=== PATIENT | male | born 1965 | race Caucasian/White ===

== ENCOUNTER 2023-07-12 23:41 | Inpatient (IN) | payer OTHER, MEDICAID ==
[~2023-07-12] VITALS: Ht 170.2 cm; Wt 108.4 kg
[2023-07-13] VITALS (39 sets, daily range): BP systolic 121–154; BP diastolic 82–112; PULSE 75–97; RESP 14–27; TEMP 97.2–98.1
[2023-07-13 00:35] LABS: BASOPHILS % 0.9 % (0.0-2.0); EOSINOPHILS % 6.7 % (0.0-5.0); HEMATOCRIT. 54.7 % (42.0-52.0); LYMPHOCYTES % 23.4 % (20.0-50.0); MEAN CORPUSCULAR HEMOGLOBIN 32.5 pg (28.0-32.0); MEAN CORPUSCULAR HGB CONC 34.7 g/dL (31.0-37.0); MEAN CORPUSCULAR VOLUME 93.7 fL (80.0-94.0); MONOCYTES % 4.7 % (2.0-8.0); NEUTROPHILS % 64.3 % (40.0-76.0); PLATELET 280 x1000/uL (130-400); RED BLOOD CELL COUNT 5.84 mill/uL (4.7-6.1); RED CELL DISTRIBUTION WIDTH 14.7 % (11.6-14.6); WHITE BLOOD COUNT 10.9 x1000/uL (4.5-11.0)
[2023-07-13 00:42] LABS: CHLORIDE 103 mEq/L (98-107); POTASSIUM 3.6 mEq/L (3.5-5.1); SODIUM 138 mEq/L (136-145)
[2023-07-13 00:43] LABS: CARBON DIOXIDE 28 mEq/L (21-32)
[2023-07-13 00:44] LABS: CALCIUM 8.9 mg/dL (8.7-10.4)
[2023-07-13 00:48] LABS: CREATININE 1.2 mg/dL (0.6-1.3); GLUCOSE 155 mg/dL (70-105)
[2023-07-13 00:49] LABS: UREA NITROGEN BLOOD 7 mg/dL (9-23)
[2023-07-13 00:50] LABS: ALANINE AMINOTRANSFERASE 25 IU/L (10-49); ALBUMIN 4.5 g/dL (3.2-4.8); ASPARTATE AMINOTRANSFERASE 32 IU/L (<34); LACTIC ACID 2.2 mmol/L (0.4-2.0)
[2023-07-13 00:51] LABS: BILIRUBIN TOTAL 0.5 mg/dL (0.1-1.0); PROTEIN TOTAL 7.8 g/dL (6.0-8.3)
[2023-07-13 00:59] LABS: TROPONIN I HIGH SENSITIVITY 621 ng/L (3.0-53)
[2023-07-13 01:23] LABS: BG BASE EXCESS -1.5 mmol/L (-2.0-2.0); BG CARBOXYHEMOGLOBIN 0.2 % (0.5-1.5); BG DEOXYHEMOGLOBIN 4.6 % (0.0-5.0); BG FRACTION INSPIRED OXYGEN 28; BG HCO3 ACT 21.9 mmol/L (22.0-26.0); BG METHEMOGLOBIN 0.3 % (0.0-1.5); BG OXYGEN SATURATION 95.4 % (92.0-98.5); BG OXYHEMOGLOBIN 94.9 % (94.0-97.0); BG PCO2 34.3 mmHg (35.0-45.0); BG PH 7.423 (7.350-7.450); BG PO2 77.3 mmHg (75.0-100.0); BG SAMPLE SITE RIGHT BRACHIAL; BG VENT MODE NASAL CANNULA
[2023-07-13] MEDS: LABETALOL 5MG/ML SYR 20 MG/4 ML SYRINGE IV NR (01:54)
[2023-07-13] MEDS: CEFTRIAXONE 1GM/50ML 50 ML IV ONE (01:54)
[2023-07-13] MEDS: AZITHROMYCIN 500MG/250ML 250 ML IV ONE (03:01)
[2023-07-13 03:14] LABS: TROPONIN I HIGH SENSITIVITY 563 ng/L (3.0-53)
[2023-07-13] MEDS ORDERED: NICARDIPINE 100 MG in SODIUM CHLORIDE 0.9% 60 ML IV ONE (03:15)
[2023-07-13] MEDS: NICARDIPINE 40 MG/200 ML PREMIX 200 ML IV NR (03:49)
[2023-07-13] MEDS: IOHEXOL-350 100 ML BOTTLE ONE (05:03)
[2023-07-13] MEDS ORDERED: MAGNESIUM/ALUMINUM HYDROXIDE/SIMETHICONE 30ML UDC PO PRN (09:30)
[2023-07-13] MEDS ORDERED: IPRATROPIUM/ALBUTEROL 0.5-3(2.5)MG/3ML NEB HHN PRN (09:30)
[2023-07-13] MEDS ORDERED: GUAIFENESIN 200MG/10ML SUGAR FREE UDC PO PRN (09:30)
[2023-07-13] MEDS ORDERED: DOCUSATE SODIUM 100MG CAPSULE PO PRN (09:30)
[2023-07-13] MEDS ORDERED: NA PHOS,M-B/NA PHOS,DI-BA ENEMA 118ML PR PRN (09:30)
[2023-07-13] MEDS ORDERED: ONDANSETRON HCL 4MG/2ML INJ IV PRN (09:30)
[2023-07-13] MEDS ORDERED: ACETAMINOPHEN 325MG TABLET PO PRN ×2 (09:30)
[2023-07-13] MEDS ORDERED: LABE300T36 PO (09:32)
[2023-07-13] MEDS ORDERED: GUAN2TAB PO (09:32)
[2023-07-13] MEDS ORDERED: FURO20TA4 PO (09:32)
[2023-07-13] MEDS ORDERED: LOSA100T33 PO (09:32)
[2023-07-13] MEDS ORDERED: HYDR25TA PO (09:32)
[2023-07-13] MEDS ORDERED: SPIR50TA5 PO (09:32)
[2023-07-13] MEDS ORDERED: NIFE-49 PO (09:32)
[2023-07-13] MEDS: ENOXAPARIN 30MG/0.3ML SYR SUBCUT SCH (10:34)
[2023-07-13] MEDS: NIFEDIPINE XL 60MG TAB PO SCH (10:35)
[2023-07-13] MEDS: HYDROCHLOROTHIAZIDE 25MG TABLET PO SCH (11:33)
[2023-07-13] MEDS: CLONIDINE 0.1MG TABLET PO PRN (12:16)
[2023-07-13] MEDS ORDERED: FAMO20TA8 PO (14:21)
[2023-07-13] MEDS ORDERED: DAPA10TA PO (14:21)
[2023-07-13] MEDS ORDERED: AMLO10TA80 PO (14:21)
[2023-07-13] MEDS ORDERED: METF-874 PO (14:21)
[2023-07-13 14:48] LABS: CREATINE KINASE 261 IU/L (46-171)
[2023-07-13 15:07] LABS: TROPONIN I HIGH SENSITIVITY 522 ng/L (3.0-53)
[2023-07-13 15:30] LABS: CLARITY URINE CLEAR (CLEAR); COLOR URINE YELLOW (YELLOW); GLUCOSE URINE NEGATIVE (NEGATIVE); KETONES URINE NEGATIVE (NEGATIVE); LEUKOCYTE ESTERASE URINE NEGATIVE (NEGATIVE); NITRITE URINE NEGATIVE (NEGATIVE); OCCULT BLOOD URINE NEGATIVE (NEGATIVE); PH URINE 7.5 (4.5-8.0); PROTEIN URINE NEGATIVE (NEGATIVE); SPECIFIC GRAVITY URINE 1.009 (1.005-1.030); UROBILINOGEN URINE 0.2 E.U./dL (0.2-1.0)
[2023-07-13 15:38] LABS: *AMPHETAMINES SCREEN URINE NEGATIVE (NEGATIVE); *BARBITURATES SCREEN URINE NEGATIVE (NEGATIVE); *BENZODIAZEPINES SCREEN URINE NEGATIVE (NEGATIVE); *COCAINE SCREEN URINE NEGATIVE (NEGATIVE); CANNABINOID URINE SCREEN NEGATIVE (NEGATIVE); ECSTASY MDMA SCREEN URINE NEGATIVE (NEGATIVE); METHADONE URINE SCREEN NEGATIVE (NEGATIVE); OPIATES URINE SCREEN NEGATIVE (NEGATIVE); PHENCYCLIDINE URINE SCREEN NEGATIVE (NEGATIVE)
[2023-07-13 17:13] LABS: PROTHROMBIN TIME 11.5 sec (9.6-11.0)
[2023-07-13] MEDS ORDERED: HYDRALAZINE 20MG/ML VIAL IV PRN (18:45)
[2023-07-13] MEDS: ENOXAPARIN 120MG/0.8ML SYR SUBCUT NR (20:50)
[2023-07-13] MEDS: LABETALOL HCL 300MG TABLET PO SCH (20:51)
[2023-07-13] MEDS: FUROSEMIDE 20MG TABLET PO SCH (20:51)
[2023-07-13] MEDS: LOSARTAN 100 MG TABLET PO SCH (20:52)
[2023-07-13] MEDS ORDERED: LOSARTAN 100 MG TABLET PO SCH (21:00)
[2023-07-13 23:42] LABS: CREATINE KINASE 215 IU/L (46-171)
[2023-07-13 23:48] LABS: TROPONIN I HIGH SENSITIVITY 530 ng/L (3.0-53)
[2023-07-14] VITALS (15 sets, daily range): BP systolic 107–134; BP diastolic 71–98; PULSE 75–91; RESP 15–23; TEMP 97.3–98.5
[2023-07-14] MEDS: AZITHROMYCIN 500MG/250ML 250 ML IV SCH (00:21)
[2023-07-14] MEDS: CEFTRIAXONE 1GM/50ML 50 ML IV SCH (02:03)
[2023-07-14] MEDS: ENOXAPARIN 120MG/0.8ML SYR SUBCUT SCH (05:34)
[2023-07-14] MEDS ORDERED: CEFTRIAXONE 1GM/50ML 50 ML IV SCH (06:00)
[2023-07-14] MEDS ORDERED: AZITHROMYCIN 500MG/250ML 250 ML IV SCH (06:30)
[2023-07-14 06:42] LABS: BASOPHILS % 0.6 % (0.0-2.0); CHLORIDE 98 mEq/L (98-107); EOSINOPHILS % 8.9 % (0.0-5.0); HEMATOCRIT. 51.4 % (42.0-52.0); HEMOGLOBIN. 17.7 g/dL (14.0-18.0); LYMPHOCYTES % 24.4 % (20.0-50.0); MEAN CORPUSCULAR HGB CONC 34.5 g/dL (31.0-37.0); MEAN CORPUSCULAR VOLUME 92.8 fL (80.0-94.0); MEAN PLATELET VOLUME 9.1 fl (7.4-10.4); MONOCYTES % 6.7 % (2.0-8.0); NEUTROPHILS % 59.4 % (40.0-76.0); PLATELET 254 x1000/uL (130-400); POTASSIUM 3.4 mEq/L (3.5-5.1); RED BLOOD CELL COUNT 5.53 mill/uL (4.7-6.1); RED CELL DISTRIBUTION WIDTH 14.9 % (11.6-14.6); SODIUM 134 mEq/L (136-145); WHITE BLOOD COUNT 8.6 x1000/uL (4.5-11.0)
[2023-07-14 06:45] LABS: CALCIUM 9.2 mg/dL (8.7-10.4); CARBON DIOXIDE 28 mEq/L (21-32)
[2023-07-14 06:50] LABS: CREATININE 1.1 mg/dL (0.6-1.3); GLUCOSE 121 mg/dL (70-105); TRIGLYCERIDE 208 mg/dL (0-150); UREA NITROGEN BLOOD 8 mg/dL (9-23)
[2023-07-14 06:51] LABS: LDL CHOLESTEROL 114 mg/dL (5-100)
[2023-07-14 06:52] LABS: ALANINE AMINOTRANSFERASE 26 IU/L (10-49); ALBUMIN 4.1 g/dL (3.2-4.8); ASPARTATE AMINOTRANSFERASE 29 IU/L (<34); CHOLESTEROL 190 mg/dL (<200); HDL CHOLESTEROL 63 mg/dL (>55)
[2023-07-14 06:53] LABS: BILIRUBIN TOTAL 0.7 mg/dL (0.1-1.0); T4 FREE 1.26 ng/dL (0.89-1.76); THYROID STIMULATING HORMONE 2.02 uIU/mL (0.55-4.78)
[2023-07-14] MEDS: POTASSIUM CHLORIDE 20MEQ TABLET SR PO NR (10:27)
[2023-07-14] MEDS: ASPIRIN 81MG TABLET PO SCH (15:27)
[2023-07-14] MEDS: FUROSEMIDE 40MG/4ML VIAL IVP SCH (15:27)
[2023-07-14] MEDS: CARVEDILOL 6.25 MG TABLET PO SCH (21:29)
[2023-07-15] VITALS (11 sets, daily range): BP systolic 118–152; BP diastolic 84–99; PULSE 67–84; RESP 16–25; TEMP 97.7–98.5
[2023-07-15 06:47] LABS: HEMATOCRIT 52.7 % (42.0-52.0); HEMOGLOBIN 18.2 g/dL (14.0-18.0); MEAN CORPUSCULAR HEMOGLOBIN 32.1 pg (28.0-32.0); MEAN CORPUSCULAR HGB CONC 34.6 g/dL (31.0-37.0); PLATELET 257 x1000/uL (130-400); RED BLOOD CELL COUNT 5.67 mill/uL (4.7-6.1); RED CELL DISTRIBUTION WIDTH 14.7 % (11.6-14.6); WHITE BLOOD COUNT 8.4 x1000/uL (4.5-11.0)
[2023-07-15 06:51] LABS: CARBON DIOXIDE 26 mEq/L (21-32); CHLORIDE 98 mEq/L (98-107); POTASSIUM 3.5 mEq/L (3.5-5.1); SODIUM 132 mEq/L (136-145)
[2023-07-15 06:57] LABS: CREATININE 1.4 mg/dL (0.6-1.3); GLUCOSE 129 mg/dL (70-105); UREA NITROGEN BLOOD 12 mg/dL (9-23)
[2023-07-15] MEDS ORDERED: HEPARIN 1000 UNITS/ML 10ML ONE (07:31)
[2023-07-15] MEDS ORDERED: LIDOCAINE HCL 1% 20ML VIAL (Pyxis) INJ ONE (07:32)
[2023-07-15] MEDS ORDERED: IODIXANOL 320MG/ML 100 ML BOTTLE IV ONE (07:32)
[2023-07-15 08:52] LABS: BG BASE EXCESS 2.8 mmol/L (-2.0-2.0); BG CARBOXYHEMOGLOBIN 0.3 % (0.5-1.5); BG DEOXYHEMOGLOBIN 3.4 % (0.0-5.0); BG FRACTION INSPIRED OXYGEN 21; BG HCO3 ACT 27.6 mmol/L (22.0-26.0); BG METHEMOGLOBIN 0.5 % (0.0-1.5); BG OXYGEN SATURATION 96.6 % (92.0-98.5); BG OXYHEMOGLOBIN 95.8 % (94.0-97.0); BG PCO2 42.5 mmHg (35.0-45.0); BG PH 7.431 (7.350-7.450); BG PO2 85.5 mmHg (75.0-100.0); BG SAMPLE SITE RIGHT RADIAL; BG TOTAL HEMOGLOBIN 20.4 g/dL (12.0-18.0); BG VENT MODE ROOM AIR
[2023-07-15] MEDS ORDERED: DIPHENHYDRAMINE 50MG/ML VIAL ONE (08:53)
[2023-07-15] MEDS ORDERED: MIDAZOLAM HCL 2 MG/2 ML VIAL ONE (08:53)
[2023-07-15] MEDS ORDERED: FENTANYL CITRATE/PF 50MCG/ML 2ML VIAL ONE (08:53)
[2023-07-15] MEDS ORDERED: VERAPAMIL HCL 2.5 MG/1 ML 2ML VIAL IV ONE (08:54)
[2023-07-15] MEDS ORDERED: ACETAMINOPHEN 325MG TABLET PO PRN (10:45)
[2023-07-15] MEDS ORDERED: ATROPINE SULFATE 1MG/10ML SYR IV PRN (10:45)
[2023-07-15] MEDS: SODIUM CHLORIDE 0.9% 1,000 ML IV SCH (13:10)
[2023-07-15] MEDS ORDERED: HYDRALAZINE 20MG/ML VIAL ONE (14:08)
[2023-07-15] MEDS ORDERED: AMLO10TA80 PO (14:47)
[2023-07-15] MEDS ORDERED: DAPA10TA PO (14:48)
[2023-07-15] MEDS ORDERED: GUAN2TAB PO (14:49)
[2023-07-15] MEDS ORDERED: FAMO20TA8 PO (14:49)
[2023-07-15] MEDS ORDERED: METF-874 PO (14:53)
[2023-07-15] MEDS ORDERED: HYDR25TA PO (14:53)
[2023-07-15] MEDS ORDERED: NIFE-32 PO (14:53)
[2023-07-15] MEDS ORDERED: LABE300T36 PO (14:53)
[2023-07-15] MEDS ORDERED: SPIR50TA5 PO (14:53)
[2023-07-15] MEDS ORDERED: LOSA-415 PO (14:53)
[2023-07-15] MEDS ORDERED: FURO20TA4 PO (14:56)
[2023-07-15] MEDS: CARVEDILOL 12.5MG TABLET PO SCH (21:28)
[2023-07-15] MEDS: DOXYCYCLINE 100MG/100ML 100 ML IV SCH (21:28)
[2023-07-16] VITALS (9 sets, daily range): BP systolic 107–148; BP diastolic 63–94; PULSE 64–76; RESP 16–21; TEMP 97.5–98.1; O2SAT 95
[2023-07-16 07:57] LABS: BASOPHILS % 0.5 % (0.0-2.0); EOSINOPHILS % 8.3 % (0.0-5.0); HEMATOCRIT. 51.5 % (42.0-52.0); HEMOGLOBIN. 17.6 g/dL (14.0-18.0); LYMPHOCYTES % 23.2 % (20.0-50.0); MEAN CORPUSCULAR HEMOGLOBIN 31.8 pg (28.0-32.0); MEAN CORPUSCULAR HGB CONC 34.3 g/dL (31.0-37.0); MEAN CORPUSCULAR VOLUME 92.8 fL (80.0-94.0); MONOCYTES % 9.1 % (2.0-8.0); NEUTROPHILS % 58.9 % (40.0-76.0); PLATELET 235 x1000/uL (130-400); RED BLOOD CELL COUNT 5.54 mill/uL (4.7-6.1); RED CELL DISTRIBUTION WIDTH 14.5 % (11.6-14.6); WHITE BLOOD COUNT 7.6 x1000/uL (4.5-11.0)
[2023-07-16 08:12] LABS: CALCIUM 9.5 mg/dL (8.7-10.4); CARBON DIOXIDE 27 mEq/L (21-32); CHLORIDE 100 mEq/L (98-107); POTASSIUM 3.6 mEq/L (3.5-5.1); SODIUM 134 mEq/L (136-145)
[2023-07-16 08:18] LABS: CREATININE 1.2 mg/dL (0.6-1.3); GLUCOSE 110 mg/dL (70-105); UREA NITROGEN BLOOD 11 mg/dL (9-23)
[2023-07-16] MEDS: SPIRONOLACTONE 12.5MG TABLET PO SCH (09:00)
[2023-07-16] MEDS ORDERED: COR12 PO (14:21)
[2023-07-16] MEDS ORDERED: ATOR20TA PO (14:21)
[2023-07-16] MEDS ORDERED: SPIR25TA PO (14:21)
[2023-07-16] MEDS ORDERED: LOSA100T33 PO (14:21)
[2023-07-16] MEDS ORDERED: FURO-151 PO (14:21)
== END 2023-07-16 19:00 | disposition home or self-care (01) | DRG 280 ==
LOC: ER 23:41 → EDBEDREQ 07-13 01:32 → EDBEDREQTM 07-13 02:51 → MICUNO 07-13 03:19 → EDBEDREQTM 07-13 03:29 → EDBEDREQSVC 07-13 03:29 → 5EST 07-13 18:40
PROVIDERS: ADMIT Hospitalist; ATTEND Hospitalist
PROC: 5A09357 Assistance with Respiratory Ventilation, Less than 24 Consecutive Hours, Continuous Positive Airway Pressure (ICD-10-PCS; 2023-07-12)
PROC: 5A09357 Assistance with Respiratory Ventilation, Less than 24 Consecutive Hours, Continuous Positive Airway Pressure (ICD-10-PCS; 2023-07-14)
PROC: 4A023N7 Measurement of Cardiac Sampling and Pressure, Left Heart, Percutaneous Approach (ICD-10-PCS; principal; 2023-07-15)
PROC: B211YZZ Fluoroscopy of Multiple Coronary Arteries using Other Contrast (ICD-10-PCS; 2023-07-15)
DX: I11.0 Hypertensive heart disease with heart failure (principal); I50.23 Acute on chronic systolic (congestive) heart failure; I21.A1 Myocardial infarction type 2; J18.9 Pneumonia, unspecified organism; J96.01 Acute respiratory failure with hypoxia; I16.1 Hypertensive emergency; Z20.822 Contact with and (suspected) exposure to COVID-19; E87.20 Acidosis, unspecified; I25.10 Atherosclerotic heart disease of native coronary artery without angina pectoris; I71.21 Aneurysm of the ascending aorta, without rupture; E66.9 Obesity, unspecified; Z68.37 Body mass index [BMI] 37.0-37.9, adult; R59.0 Localized enlarged lymph nodes; D75.1 Secondary polycythemia; E66.01 Morbid (severe) obesity due to excess calories; E78.5 Hyperlipidemia, unspecified; G47.33 Obstructive sleep apnea (adult) (pediatric)
CPT/HCPCS: 36415; 36600; 71045; 71275; 80048; 80053; 80061; 80305; 81003; 82375; 82550; 82805; 83605; 83880; 84439; 84443; 84484; 85025; 85027; 85379; 87070; 87426; 93005; 93306; 93458; 93970; 94660; 99291; C1769; C1887; C1893; J0360; J0456; J0696; J1200; J1644; J1650; J1940; J2250; J3010; J3490; J7030; Q9967